=== PATIENT | female | born 1995 | race Caucasian/White ===

== ENCOUNTER 2018-11-30 19:40 | Observation (INO) | payer OTHER ==
[2018-11-30 19:48] VITALS: BMI 27.6
[2018-11-30] MEDS ORDERED: ACETAMINOPHEN 1000 MG/100 ML VIAL (NON FORMULARY) IVPB ONE (20:27)
--- NOTE | 2018-11-30 20:44 | PDOC ---
History of Present Illness - General Chief Complaint: Vaginal Bleeding Stated Complaint: 4 W PREG/VAG BLEEDING Time Seen by Provider: 11/30/18 20:13 History Source: Patient Exam Limitations: No Limitations - History of Present Illness Initial Comments: 11/30/18 20:39 23 yo female no sig pmh presents to ED for abdominal cramping. Pt 4 weeks with first child however pt states US at [facility] today shows spontaneous . Pt told to follow up with OB doctor within the next few days however, decided to come to the ER due to continued crampy abdominal pain. Denies vaginal bleeding, passing clots, weakness, back pain, F/C/N/V Past History - Past Medical History Allergies/Adverse Reactions: Allergies Allergy/AdvReac Type Severity Reaction Status Date / Time No Known Allergies Allergy Verified 11/30/18 19:48 Home Medications: Ambulatory Orders NK [No Known Home Medication] 11/30/18 COPD: No Disorders: Yes (HERPES) - Immunization History Immunization Up to Date: Yes - Suicide/Smoking/Psychosocial Hx Smoking History: Unknown if ever smoked Have you smoked in the past 12 months: No Information on smoking cessation initiated: No Hx Alcohol Use: No Drug/Substance Use Hx: No *Physical Exam - Vital Signs Last Vital Signs Temp Pulse Resp BP Pulse Ox 98.0 F 94 H 16 154/85 100 11/30/18 19:44 11/30/18 19:44 11/30/18 19:44 11/30/18 19:44 11/30/18 19:44 - Physical Exam General Appearance: Yes: Nourished, Appropriately Dressed. No: Apparent Distress HEENT: positive: EOMI Neck: positive: Supple Respiratory/Chest: positive: Lungs Clear, Normal Breath Sounds. negative: Crackles, Rales, Rhonchi, Stridor, Wheezing Cardiovascular: positive: Regular Rhythm, Regular Rate, S1, S2. 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 negative: CMT, discharge, lesions, adnexal tenderness Gastrointestinal/Abdominal: positive: Flat, Soft, Tenderness (periumbilical and RLQ ). negative: Pulsatile Mass, Protuberent, Distended, Guarding, Rebound Musculoskeletal: negative: CVA Tenderness Extremity: positive: Normal Capillary Refill, Normal Inspection, Normal Range of Motion Integumentary: positive: Normal Color, Dry, Warm Neurologic: positive: Fully Oriented, Alert, Normal Mood/Affect, Normal Response ED Treatment Course - LABORATORY CBC & Chemistry Diagram: 11/30/18 20:55 11/30/18 20:55 - RADIOLOGY Radiology Studies Ordered: Category Date Time Status TRANSVAGINAL US PREG [US] Stat Ultrasound 11/30/18 20:22 Ordered Medical Decision Making - Medical Decision Making 12/01/18 01:16 RLQ pain, preg, No MRI. Attempted to transfer to [facility], neither have MRI until morning pt will receive MRI in the AM to r/o appy 12/01/18 02:27 Case presented to hospitalist for admission. Pt accepted, will have US vs MRI in the AM to r/o appendicitis *DC/Admit/Observation/Transfer Diagnosis at time of Disposition: Right lower quadrant pain - Discharge Dispostion Condition at time of disposition: Stable Decision to Admit order: Yes - Referrals - Patient Instructions - Post Discharge Activity
[2018-11-30] MEDS ORDERED: ACETAMINOPHEN INJECTION 100 ML IVPB ONE ×2 (20:46→22:26)
--- NOTE | 2018-11-30 20:58 | PDOC ---
Documentation entered by Jossie Valderrama SCRIBE, acting as scribe for Adina Rocha MD. Adina Rocha MD: This documentation has been prepared by the Lavelle hsu Xhesika, SCRIBE, under my direction and personally reviewed by me in its entirety. I confirm that the documentation accurately reflects all work, treatment, procedures, and medical decision making performed by me. Attending Attestation - Resident Resident Name: Howard Diallo - ED Attending Attestation I have performed the following: I have examined & evaluated the patient, The case was reviewed & discussed with the resident, I agree w/resident's findings & plan, Exceptions are as noted - HPI HPI: 11/30/18 20:53 The patient is a 23 year old female, , 4 weeks , with a significant past medical history of herpes who presents to our ED with 5 days of abdominal cramping. The patient states she went to [facility] today for abdominal pain and the ultrasound showed a spontaneous . The patient states her crampy abdominal pain is progressively gotten worse and its a 8/10. The patient denies taking Tylenol. The patient denies vaginal bleeding, passing clots, weakness, or back pain The patient denies chest pain, shortness of breath or dizziness. The patient denies fever, chills, nausea, diarrhea or constipation. The patient denies dysuria, frequency, or urgency. Allergy: NKDA Surgical History: None reported Social History: None reported - Physicial Exam PE: 11/30/18 20:56 GENERAL: The patient is in no acute distress. ENT: Ears normal, nares patent, oropharynx clear without exudates. Moist mucous membranes. NECK: Normal range of motion, supple LUNGS: Breath sounds equal, clear to auscultation bilaterally. HEART:Regular rate and rhythm, normal S1 and S2 without murmur, rub or gallop. ABDOMEN: Soft, lower abdominal tenderness to palpation EXTREMITIES: Normal range of motion NEUROLOGICAL: Cranial nerves II through XII grossly intact. Normal speech. No focal neurological deficits. SKIN: Warm, Dry, normal turgor, no rashes or lesions noted. - Medical Decision Making 11/30/18 20:56 23 yo approximately 4 weeks presenting with lower abdominal pain , no vaginal bleeding, no vomiting Pt was seen at [facility] for these complaints earlier today Was told that she has a spontaneous She continues to have pain and decided to come in to the ER for evaluation Will repeat labs and US Will give Tylenol for pain Will re assess 11/30/18 22:46 Laboratory Tests 11/30/18 11/30/18 11/30/18 20:55 20:55 21:10 WBC 13.1 H Hgb 13.6 Hct 42.7 Plt Count 266 Sodium 142 Potassium 3.5 Chloride 108 H Carbon Dioxide 27 BUN 11 Creatinine 1.0 Random Glucose 107 H Beta HCG, Quant 2249.0 Urine Blood 1+ H Urine Nitrite Negative Ur Leukocyte Esterase 1+ H Urine WBC (Auto) 9 Urine RBC (Auto) 2 Urine Bacteria (Auto) 514.0 11/30/18 22:51 US pending Pt was not given pain medications Will re assess after pain medications 11/30/18 23:29 EXAM: Transabdominal and transvaginal OB ultrasound HISTORY: IUP versus COMPARISON: None. FINDINGS: Transabdominal and transvaginal sonography performed. There is an early intrauterine gestational sac with a visible yolk sac positioned very low in the lower uterine segment. No pole identified at the time. It is probably too early. Question 1.6 cm right-sided uterine fibroid. Both ovaries are identified. There is intact blood flow to the ovaries. There is a 1.3 cm complex left ovarian cyst, possible corpus luteum cyst. No free fluid. Follow-up is advised. 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
[2018-11-30 21:04] LABS: BASO % 0.7 % (0-2.0); EOS % 1.7 % (0-4.5); HEMATOCRIT 42.7 % (32.4-45.2); HEMOGLOBIN 13.6 GM/dL (10.7-15.3); LYMPH % 23.3 % (8-40); MCH 26.2 pg (25.7-33.7); MCHC 31.9 g/dl (32.0-36.0); MEAN CELL VOLUME 82.1 fl (80-96); MEAN PLT VOLUME 8.4 fl (7.5-11.1); MONO % 7.4 % (3.8-10.2); NEUT % 66.9 % (42.8-82.8); PLATELET COUNT 266 K/MM3 (134-434); WHITE BLOOD COUNT 13.1 K/mm3 (4.0-10.0)
[2018-11-30 21:25] LABS: EPI CELLS 7.2 /HPF (0-5/HPF); URINE APPEARANCE CLEAR; URINE BILIRUBIN NEGATIVE (NEGATIVE); URINE CASTS 6 /lpf (0-8); URINE COLOR YELLOW; URINE GLUCOSE (UA) NEGATIVE (NEGATIVE); URINE KETONE TRACE (NEGATIVE); URINE LEUK ESTERASE 1+ (NEGATIVE); URINE NITRITE NEGATIVE (NEGATIVE); URINE PROTEIN NEGATIVE (NEGATIVE); URINE RBC 2 /hpf (0-4); URINE WBC 9 /hpf (0-5)
[2018-11-30 22:06] LABS: BILIRUBIN,TOTAL 0.2 mg/dL (0.2-1); CALCIUM 8.8 mg/dL (8.5-10.1); POTASSIUM 3.5 mmol/L (3.5-5.1); TOT PROT 7.2 g/dl (6.4-8.2)
[2018-11-30] MEDS ORDERED: SODIUM CHLORIDE 1,000 ML IV STA (22:32)
[2018-12-01 06:27] VITALS: TEMP 98.4
[2018-12-01 08:36] VITALS: BP 121/64; PULSE 84
--- NOTE | 2018-12-01 08:58 | HP ---
CHIEF COMPLAINT: pain abdomen, spontaneous PCP: none HISTORY OF PRESENT ILLNESS: 23 y/o f with no pmh came to hospital yesterday because of pain abdomen. Pain states that she is was having a pain abdomen ( cramping like her menses, intermittent, non radiating ) since november 26 and she checked her urine test which came out positive. later on same day she [facility] and they confirmed the but yesterday when she noticed a brown spot she went to [facility] and was diagnosed with sponateous and was discharged home wi h instruction to come back after 24 hour but pt came to [facility] for persistent pain abdomen. In Er TV ultrasound was done which shows suspicious for an impending . Ob-[facility] Dr macias was consulted. Now pt is pain free and is discharged home with instruction to repeat Bhcg with in 2 days. Pt states she will go to [facility] for the test. Pt denies burning micturation, change in frequency, diarrhoea, constipation, abdominal distension. ER course was notable for: (1)cbc, cmp, TV usg, bhcg Recent Travel: no PAST MEDICAL HISTORY: no PAST SURGICAL HISTORY: none Social History: Smoking:no Alcohol:no Drugs: no Family History: none Allergies No Known Allergies Allergy (Verified 11/30/18 19:48) HOME MEDICATIONS: Home Medications Medication Instructions Recorded NK [No Known Home Medication] 11/30/18 REVIEW OF SYSTEMS CONSTITUTIONAL: Absent: fever, chills, diaphoresis, generalized weakness, malaise, loss of appetite, weight change HEENT: Absent: rhinorrhea, nasal congestion, throat pain, throat swelling, difficulty swallowing, mouth swelling, ear pain, eye pain, visual changes CARDIOVASCULAR: Absent: chest pain, syncope, palpitations, irregular heart rate, lightheadedness , peripheral edema RESPIRATORY: Absent: cough, shortness of breath, dyspnea with exertion, orthopnea, wheezing, stridor, hemoptysis GASTROINTESTINAL: Absent: abdominal pain, abdominal distension, nausea, vomiting, diarrhea, constipation, melena, hematochezia GENITOURINARY: Absent: dysuria, frequency, urgency, hesitancy, hematuria, flank pain, genital pain MUSCULOSKELETAL: Absent: myalgia, arthralgia, joint swelling, back pain, neck pain SKIN: Absent: rash, itching, pallor HEMATOLOGIC/IMMUNOLOGIC: Absent: easy bleeding, easy bruising, lymphadenopathy, frequent infections ENDOCRINE: Absent: unexplained weight gain, unexplained weight loss, heat intolerance, cold intolerance NEUROLOGIC: Absent: headache, focal weakness or paresthesias, dizziness, unsteady gait, seizure, mental status changes, bladder or bowel incontinence PSYCHIATRIC: Absent: anxiety, depression, suicidal or homicidal ideation, hallucinations. PHYSICAL EXAMINATION Vital Signs - 24 hr 11/30/18 11/30/18 12/01/18 19:44 22:20 06:26 Temperature 98.0 F 98.7 F 98.4 F Pulse Rate 94 H Pulse Rate [ 77 86 Right Radial] Respiratory 16 16 Rate Blood Pressure 154/85 Blood Pressure 128/72 117/68 [Right Arm] O2 Sat by Pulse 100 100 99 Oximetry (%) 12/01/18 08:05 Temperature Pulse Rate Pulse Rate [ 84 Right Radial] Respiratory 17 Rate Blood Pressure Blood Pressure 121/64 [Right Arm] O2 Sat by Pulse 98 Oximetry (%) GENERAL: Awake, alert, and fully oriented, in no acute distress. HEAD: Normal with no signs of trauma. EYES: Pupils equal, round and reactive to light, extraocular movements intact, EARS, NOSE, THROAT: Moist mucous membranes. NECK: Normal range of motion, supple without lymphadenopathy, JVD, or masses. LUNGS: Breath sounds equal, clear to auscultation bilaterally. No wheezes, and no crackles. No accessory muscle use. HEART: Regular rate and rhythm, normal S1 and S2 without murmur, rub or gallop. ABDOMEN: Soft, mild tender, not distended, normoactive bowel sounds, no guarding , no rebound, no masses. MUSCULOSKELETAL: Normal range of motion at all joints. No bony deformities or tenderness. UPPER EXTREMITIES: 2+ pulses, warm, well-perfused. LOWER EXTREMITIES: 2+ pulses, warm, well-perfused. No calf tenderness. No peripheral edema. NEUROLOGICAL: Cranial nerves II-XII intact. Normal speech. Normal gait. PSYCHIATRIC: Cooperative. Good eye contact. Appropriate mood and affect. SKIN: Warm, dry, Laboratory Results - last 24 hr 11/30/18 11/30/18 11/30/18 20:55 20:55 20:55 WBC 13.1 H RBC 5.20 Hgb 13.6 Hct 42.7 MCV 82.1 MCH 26.2 MCHC 31.9 L RDW 14.0 Plt Count 266 MPV 8.4 Absolute Neuts (auto) 8.8 H Neutrophils % 66.9 Lymphocytes % 23.3 Monocytes % 7.4 Eosinophils % 1.7 Basophils % 0.7 Nucleated RBC % 0 Sodium 142 Potassium 3.5 Chloride 108 H Carbon Dioxide 27 Anion Gap 7 L BUN 11 Creatinine 1.0 Est GFR (CKD-EPI)AfAm 90.68 Est GFR (CKD-EPI)NonAf 78.24 Random Glucose 107 H Calcium 8.8 Total Bilirubin 0.2 AST 16 ALT 46 Alkaline Phosphatase 94 Total Protein 7.2 Albumin 4.0 Beta HCG, Quant 2249.0 Urine Color Urine Appearance Urine pH Ur Specific [place] Urine Protein Urine Glucose (UA) Urine Ketones Urine Blood Urine Nitrite Urine Bilirubin Urine Urobilinogen Ur Leukocyte Esterase Urine WBC (Auto) Urine RBC (Auto) Urine Casts (Auto) U Epithel Cells (Auto) Urine Bacteria (Auto) Blood Type O POSITIVE Antibody Screen Negative 11/30/18 21:10 WBC RBC Hgb Hct MCV MCH MCHC RDW Plt Count MPV Absolute Neuts (auto) Neutrophils % Lymphocytes % Monocytes % Eosinophils % Basophils % Nucleated RBC % Sodium Potassium Chloride Carbon Dioxide Anion Gap BUN Creatinine Est GFR (CKD-EPI)AfAm Est GFR (CKD-EPI)NonAf Random Glucose Calcium Total Bilirubin AST ALT Alkaline Phosphatase Total Protein Albumin Beta HCG, Quant Urine Color Yellow Urine Appearance Clear Urine pH 5.0 Ur Specific [place] 1.027 Urine Protein Negative Urine Glucose (UA) Negative Urine Ketones Trace H Urine Blood 1+ H Urine Nitrite Negative Urine Bilirubin Negative Urine Urobilinogen 1.0 Ur Leukocyte Esterase 1+ H Urine WBC (Auto) 9 Urine RBC (Auto) 2 Urine Casts (Auto) 6 U Epithel Cells (Auto) 7.2 Urine Bacteria (Auto) 514.0 Blood Type Antibody Screen ASSESSMENT/PLAN: Impending - dr macias consulted and she saw the pt with primary medical team. Ultrasound findings discussed in detail with pt. - tylenol for pain - drink plenty of liquid - repeat bhcg with in 2 days which can be done out pt. - Visit type - Emergency Visit Emergency Visit: Yes ED Registration Date: 12/01/18 Care time: The patient presented to the Emergency Department on the above date and was hospitalized for further evaluation of their emergent condition. - New Patient This patient is new to me today: Yes Date on this admission: 12/01/18 - Critical Care Critical Care patient: No
--- NOTE | 2018-12-01 08:58 | DS ---
Physical Exam: SUBJECTIVE: Patient seen and examined OBJECTIVE: Vital Signs Period Temp Pulse Resp BP Sys/[place]court Pulse Ox Last 24 Hr 98.0 F-98.7 F 77-94 16-17 117-154/64-85 98-100 PHYSICAL EXAM GENERAL: The patient is awake, alert, and fully oriented, in no acute distress. HEAD: Normal with no signs of trauma. EYES: PERRL, extraocular movements intact, sclera anicteric, conjunctiva clear. ENT: Ears normal, nares patent, oropharynx clear without exudates, moist mucous membranes. NECK: Trachea midline, full range of motion, supple. LUNGS: Breath sounds equal, clear to auscultation bilaterally, no wheezes, no crackles, no accessory muscle use. HEART: Regular rate and rhythm, S1, S2 without murmur, rub or gallop. ABDOMEN: Soft, nontender, nondistended, normoactive bowel sounds, no guarding, no rebound, no hepatosplenomegaly, no masses. EXTREMITIES: 2+ pulses, warm, well-perfused, no edema. NEUROLOGICAL: Cranial nerves II through XII grossly intact. Normal speech, gait not observed. PSYCH: Normal mood, normal affect. SKIN: Warm, dry, normal turgor, no rashes or lesions noted. LABS Laboratory Results - last 24 hr 11/30/18 11/30/18 11/30/18 20:55 20:55 20:55 WBC 13.1 H RBC 5.20 Hgb 13.6 Hct 42.7 MCV 82.1 MCH 26.2 MCHC 31.9 L RDW 14.0 Plt Count 266 MPV 8.4 Absolute Neuts (auto) 8.8 H Neutrophils % 66.9 Lymphocytes % 23.3 Monocytes % 7.4 Eosinophils % 1.7 Basophils % 0.7 Nucleated RBC % 0 Sodium 142 Potassium 3.5 Chloride 108 H Carbon Dioxide 27 Anion Gap 7 L BUN 11 Creatinine 1.0 Est GFR (CKD-EPI)AfAm 90.68 Est GFR (CKD-EPI)NonAf 78.24 Random Glucose 107 H Calcium 8.8 Total Bilirubin 0.2 AST 16 ALT 46 Alkaline Phosphatase 94 Total Protein 7.2 Albumin 4.0 Beta HCG, Quant 2249.0 Urine Color Urine Appearance Urine pH Ur Specific [place] Urine Protein Urine Glucose (UA) Urine Ketones Urine Blood Urine Nitrite Urine Bilirubin Urine Urobilinogen Ur Leukocyte Esterase Urine WBC (Auto) Urine RBC (Auto) Urine Casts (Auto) U Epithel Cells (Auto) Urine Bacteria (Auto) Blood Type O POSITIVE Antibody Screen Negative 11/30/18 21:10 WBC RBC Hgb Hct MCV MCH MCHC RDW Plt Count MPV Absolute Neuts (auto) Neutrophils % Lymphocytes % Monocytes % Eosinophils % Basophils % Nucleated RBC % Sodium Potassium Chloride Carbon Dioxide Anion Gap BUN Creatinine Est GFR (CKD-EPI)AfAm Est GFR (CKD-EPI)NonAf Random Glucose Calcium Total Bilirubin AST ALT Alkaline Phosphatase Total Protein Albumin Beta HCG, Quant Urine Color Yellow Urine Appearance Clear Urine pH 5.0 Ur Specific [place] 1.027 Urine Protein Negative Urine Glucose (UA) Negative Urine Ketones Trace H Urine Blood 1+ H Urine Nitrite Negative Urine Bilirubin Negative Urine Urobilinogen 1.0 Ur Leukocyte Esterase 1+ H Urine WBC (Auto) 9 Urine RBC (Auto) 2 Urine Casts (Auto) 6 U Epithel Cells (Auto) 7.2 Urine Bacteria (Auto) 514.0 Blood Type Antibody Screen HOSPITAL COURSE: Date of Admission:12/01/18 Date of Discharge: 12/01/18 Discharge Summary Reason For Visit: RIGHT LOWER QUADRANT ABDOMINAL PAIN Condition: Stable - Instructions Disposition: HOME - Home Medications Comprehensive Discharge Medication List: Ambulatory Orders NK [No Known Home Medication] 11/30/18
--- NOTE | 2018-12-01 09:00 | CON.OBG ---
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 She admits to have gone to [facility] where she was found to be . In ED a sonogram was done and showed evidence of a low lying gestational sac. [facility] : 2544 mIU - History Source History Provided By: Patient Limitations to Obtaining History: Language Barrier - Past Medical History ...: Yes (4wks) ...: 1 ...Para: 0 - Past Surgical History Past Surgical History: Yes: None - Alcohol/Substance Use Hx Alcohol Use: No - Smoking History Smoking history: Unknown if ever smoked Have you smoked in the past 12 months: No - Social History Usual Living Arrangement: Alone History of Recent Travel: No Home Medications - Allergies Allergies/Adverse Reactions: Allergies Allergy/AdvReac Type Severity Reaction Status Date / Time No Known Allergies Allergy Verified 11/30/18 19:48 - Home Medications Home Medications: Ambulatory Orders NK [No Known Home Medication] 11/30/18 Family Disease History - Family Disease History Family History: Unremarkable Review of Systems - Review of Systems Constitutional: reports: No Symptoms Eyes: reports: No Symptoms HENT: reports: No Symptoms Neck: reports: No Symptoms Cardiovascular: reports: No Symptoms Respiratory: reports: No Symptoms Gastrointestinal: reports: No Symptoms Genitourinary: reports: No Symptoms Breasts: reports: No Symptoms Reported Musculoskeletal: reports: No Symptoms Integumentary: reports: No Symptoms Neurological: reports: No Symptoms Endocrine: reports: No Symptoms Hematology/Lymphatic: reports: No Symptoms Psychiatric: reports: No Symptoms Pain Intensity: 3 Physical Exam-WOOD BARREL RECONDITIONER Vital Signs: Vital Signs Temperature 98.4 F 12/01/18 06:26 Pulse Rate 84 12/01/18 08:05 Respiratory Rate 17 12/01/18 08:05 Blood Pressure 121/64 12/01/18 08:05 O2 Sat by Pulse Oximetry (%) 98 12/01/18 08:05 Constitutional: Yes: Well Nourished Eyes: Yes: Conjunctiva Clear HENT: Yes: Atraumatic Neck: Yes: Supple Cardiovascular: Yes: Regular Rate and Rhythm Respiratory: Yes: Regular Gastrointestinal: Yes: Normal Bowel Sounds, Other (Mild suprapubic tenderness) ...Rectal Exam: Yes: WNL Renal/: Yes: WNL Pelvis: Yes: WNL External Genitalia: Yes: Normal Vaginal Exam: No: Bleeding Cervix: No: Bleeding Neurological: Yes: Alert, Oriented Psychiatric: Yes: Alert, Oriented Labs: CBC, BMP 11/30/18 20:55 11/30/18 20:55 Assessment/Plan Chemical R/O spontaneous Abdominal pain F/U serial BHCG as outpatient ( [address] [place] [address] ) Tylenol for pain
--- NOTE | 2018-12-01 09:05 | DS ---
Physical Exam: SUBJECTIVE: pain abdomen from an impending OBJECTIVE: Vital Signs Period Temp Pulse Resp BP Sys/Bettencourt Pulse Ox Last 24 Hr 98.0 F-98.7 F 77-94 16-17 117-154/64-85 98-100 PHYSICAL EXAM GENERAL: The patient is awake, alert, and fully oriented, in no acute distress. HEAD: Normal with no signs of trauma. EYES: PERRL, extraocular movements intact, sclera anicteric, conjunctiva clear. ENT: Ears normal, nares patent, oropharynx clear without exudates, moist mucous membranes. NECK: Trachea midline, full range of motion, supple. LUNGS: Breath sounds equal, clear to auscultation bilaterally, no wheezes, no crackles, no accessory muscle use. HEART: Regular rate and rhythm, S1, S2 without murmur, rub or gallop. ABDOMEN: Soft, mild supra pubic tender, nondistended, normoactive bowel sounds, no guarding, no rebound,, no masses. EXTREMITIES: 2+ pulses, warm, well-perfused, no edema. NEUROLOGICAL: Cranial nerves II through XII grossly intact. Normal speech, gait not observed. PSYCH: Normal mood, normal affect. SKIN: Warm, dry, LABS Laboratory Results - last 24 hr 11/30/18 11/30/18 11/30/18 20:55 20:55 20:55 WBC 13.1 H RBC 5.20 Hgb 13.6 Hct 42.7 MCV 82.1 MCH 26.2 MCHC 31.9 L RDW 14.0 Plt Count 266 MPV 8.4 Absolute Neuts (auto) 8.8 H Neutrophils % 66.9 Lymphocytes % 23.3 Monocytes % 7.4 Eosinophils % 1.7 Basophils % 0.7 Nucleated RBC % 0 Sodium 142 Potassium 3.5 Chloride 108 H Carbon Dioxide 27 Anion Gap 7 L BUN 11 Creatinine 1.0 Est GFR (CKD-EPI)AfAm 90.68 Est GFR (CKD-EPI)NonAf 78.24 Random Glucose 107 H Calcium 8.8 Total Bilirubin 0.2 AST 16 ALT 46 Alkaline Phosphatase 94 Total Protein 7.2 Albumin 4.0 Beta HCG, Quant 2249.0 Urine Color Urine Appearance Urine pH Ur Specific [place] Urine Protein Urine Glucose (UA) Urine Ketones Urine Blood Urine Nitrite Urine Bilirubin Urine Urobilinogen Ur Leukocyte Esterase Urine WBC (Auto) Urine RBC (Auto) Urine Casts (Auto) U Epithel Cells (Auto) Urine Bacteria (Auto) Blood Type O POSITIVE Antibody Screen Negative 11/30/18 21:10 WBC RBC Hgb Hct MCV MCH MCHC RDW Plt Count MPV Absolute Neuts (auto) Neutrophils % Lymphocytes % Monocytes % Eosinophils % Basophils % Nucleated RBC % Sodium Potassium Chloride Carbon Dioxide Anion Gap BUN Creatinine Est GFR (CKD-EPI)AfAm Est GFR (CKD-EPI)NonAf Random Glucose Calcium Total Bilirubin AST ALT Alkaline Phosphatase Total Protein Albumin Beta HCG, Quant Urine Color Yellow Urine Appearance Clear Urine pH 5.0 Ur Specific [place] 1.027 Urine Protein Negative Urine Glucose (UA) Negative Urine Ketones Trace H Urine Blood 1+ H Urine Nitrite Negative Urine Bilirubin Negative Urine Urobilinogen 1.0 Ur Leukocyte Esterase 1+ H Urine WBC (Auto) 9 Urine RBC (Auto) 2 Urine Casts (Auto) 6 U Epithel Cells (Auto) 7.2 Urine Bacteria (Auto) 514.0 Blood Type Antibody Screen HOSPITAL COURSE: 23 y/o f with no pmh came to hospital yesterday because of pain abdomen. Pain states that she is was having a apin abdomen since november 26 and she checked her uine test which came out positive. later on same day she went to [facility] and they confirmed the but yesterday when she noticed a brown spot she went to [facility] and was diagnosed with sponateous and was discharged home wi h instruction to come back after 24 hour but pt [facility] for persistent pain abdomen. In Er TV ultrasound was done which shows suspicious for an impending . 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 Now pt is pain free and is discharged home with instruction to repeat Bhcg with in 2 days. Pt states she will go to [facility] the test. Date of Admission:12/01/18 Date of Discharge: 12/01/18 Minutes to complete discharge: 45 Discharge Summary Reason For Visit: RIGHT LOWER QUADRANT ABDOMINAL PAIN Condition: Stable - Instructions Diet, Activity, Other Instructions: Follow up with your ob - wheel and axle inspector Get serum Bhcg level with in 2 days. Take tylenol for pain. Referrals: Karon Sparks MD [Staff Physician] - Disposition: HOME - Home Medications Comprehensive Discharge Medication List: Ambulatory Orders NK [No Known Home Medication] 11/30/18 This patient is new to me today: Yes Date on this admission: 12/01/18 Emergency Visit: Yes ED Registration Date: 12/01/18 Care time: The patient presented to the Emergency Department on the above date and was hospitalized for further evaluation of their emergent condition. Critical Care patient: No - Discharge Referral Referred to [facility] Med P.C.: No
--- NOTE | 2018-12-01 09:18 | PN ---
Teaching Attending Note Name of Resident: Alcides Peña ATTENDING PHYSICIAN STATEMENT I saw and evaluated the patient. I reviewed the resident's note and discussed the case with the resident. I agree with the resident's findings and plan as documented. SUBJECTIVE: Patient is a 23yo female vietnamese speaking, translation was done by , as per patient, she was at [facility] yesterday and was told that she has a missed , and if she continues to have further bleeding, needs return to the hospital. As per patient she continued to have more pain, came to [facility]. This morning, patient has no further pain and no further bleeding as per patient and per public health director exam. OBJECTIVE: Vital Signs Temperature 98.4 F 12/01/18 06:26 Pulse Rate 84 12/01/18 08:05 Respiratory Rate 17 12/01/18 08:05 Blood Pressure 121/64 12/01/18 08:05 O2 Sat by Pulse Oximetry (%) 98 12/01/18 08:05 Initial Vital Signs Temp Pulse Resp BP Pulse Ox 98.0 F 94 H 16 154/85 100 11/30/18 19:44 11/30/18 19:44 11/30/18 19:44 11/30/18 19:44 11/30/18 19:44 GENERAL: The patient is awake, alert, and fully oriented, in no acute distress. HEAD: Normal with no signs of trauma. EYES: PERRL, extraocular movements intact, sclera anicteric, conjunctiva clear. ENT: Ears normal, oropharynx clear without exudates, moist mucous membranes. NECK: Trachea midline, full range of motion, supple. LUNGS: Breath sounds equal, clear to auscultation bilaterally, no wheezes, no crackles, no accessory muscle use. HEART: Regular rate and rhythm, S1, S2 without murmur, rub or gallop. ABDOMEN: Soft, ND, normoactive bowel sounds, no guarding, no rebound, no hepatosplenomegaly, no masses. EXTREMITIES: 2+ pulses, warm, well-perfused, no edema. NEUROLOGICAL: Cranial nerves II through XII grossly intact. Normal speech, gait not observed. PSYCH: Normal mood, normal affect. SKIN: Warm, dry, normal turgor, no rashes or lesions noted Pelvic exam: per Dr. Sparks. CBCD WBC 13.1 K/mm3 (4.0-10.0) H 11/30/18 20:55 RBC 5.20 M/mm3 (3.60-5.2) 11/30/18 20:55 Hgb 13.6 GM/dL (10.7-15.3) 11/30/18 20:55 Hct 42.7 % (32.4-45.2) 11/30/18 20:55 MCV 82.1 fl (80-96) 11/30/18 20:55 MCHC 31.9 g/dl (32.0-36.0) L 11/30/18 20:55 RDW 14.0 % (11.6-15.6) 11/30/18 20:55 Plt Count 266 K/MM3 (134-434) 11/30/18 20:55 MPV 8.4 fl (7.5-11.1) 11/30/18 20:55 CMP Sodium 142 mmol/L (136-145) 11/30/18 20:55 Potassium 3.5 mmol/L (3.5-5.1) 11/30/18 20:55 Chloride 108 mmol/L (98-107) H 11/30/18 20:55 Carbon Dioxide 27 mmol/L (21-32) 11/30/18 20:55 Anion Gap 7 MMOL/L (8-16) L 11/30/18 20:55 BUN 11 mg/dL (7-18) 11/30/18 20:55 Creatinine 1.0 mg/dL (0.55-1.3) 11/30/18 20:55 Random Glucose 107 mg/dL (74-106) H 11/30/18 20:55 Calcium 8.8 mg/dL (8.5-10.1) 11/30/18 20:55 Total Bilirubin 0.2 mg/dL (0.2-1) 11/30/18 20:55 AST 16 U/L (15-37) 11/30/18 20:55 ALT 46 U/L (13-61) 11/30/18 20:55 Alkaline Phosphatase 94 U/L (45-117) 11/30/18 20:55 Total Protein 7.2 g/dl (6.4-8.2) 11/30/18 20:55 Albumin 4.0 g/dl (3.4-5.0) 11/30/18 20:55 Home Medications Medication Instructions Recorded NK [No Known Home Medication] 11/30/18 Urine Test Results Urine Color Yellow 11/30/18 21:10 Urine Appearance Clear 11/30/18 21:10 Urine pH 5.0 (5.0-8.0) 11/30/18 21:10 Ur Specific [place] 1.027 (1.010-1.035) 11/30/18 21:10 Urine Protein Negative (NEGATIVE) 11/30/18 21:10 Urine Glucose (UA) Negative (NEGATIVE) 11/30/18 21:10 Urine Ketones Trace (NEGATIVE) H 11/30/18 21:10 Urine Blood 1+ (NEGATIVE) H 11/30/18 21:10 Urine Nitrite Negative (NEGATIVE) 11/30/18 21:10 Urine Bilirubin Negative (NEGATIVE) 11/30/18 21:10 Ur Leukocyte Esterase 1+ (NEGATIVE) H 11/30/18 21:10 TYPE/EXAM: RESULT: [id number] US/TRANSVAGINAL US PREG HISTORY PROVIDED: evaluation. Real time examination of the pelvis utilizing both the transabdominal and transvaginal probes demonstrates the following: The uterus is normal in size measuring 7.9 x 5.4 x 4.5 cm. No uterine masses are seen. There is an intrauterine fluid collection consistent with a gestational sac. The sac is located within the lower uterine segment which is suspicious for an impending . Mean sac diameter measurements correspond to gestational age of less than 5 weeks. There is a yolk sac within the gestational sac with no evidence of a pole. Correlation with serial beta subunit hCG levels and follow-up ultrasonography is now recommended. The ovaries are normal in size and texture with arterial flow documents the both ovaries. There is an echogenic mass within the left ovary consistent with a corpus luteum cyst. There is no evidence of adnexal masses or free pelvic fluid collections. IMPRESSION: Early gestational sac within the lower uterine segment suggesting impending . Clinical and laboratory correlation and follow-up ultrasonography recommended. Please see above discussion. ASSESSMENT AND PLAN: Impending , with early gestational sac within the lower uterine segment per US report. R/O spontaneous patient was seen by OBGYn in the ED, patient is being discharged home with follow up with her OBGYN in [facility] in 2 days to have serial HCG done to determine further. F/U serial BHCG as outpatient ( [address] [place] [address] ) Tylenol for pain. patient is being discharged home.
--- NOTE | 2018-12-01 09:35 | EKG ---
Test Reason : Blood Pressure : / mmHG Vent. Rate : 074 BPM Atrial Rate : 074 BPM P-R Int : 152 ms QRS Dur : 080 ms QT Int : 378 ms P-R-T Axes : 027 029 006 degrees QTc Int : 419 ms NORMAL SINUS RHYTHM CANNOT RULE OUT ANTERIOR INFARCT , AGE UNDETERMINED ABNORMAL ECG NO PREVIOUS ECGS AVAILABLE Confirmed by RAMESH PHELAN, ALESHA ([id number]) on 12/01/2018 9:35:10 AM Referred By: Princess PÉREZ Confirmed By:ALESHA CHANDLER MD
== END 2018-12-01 08:43 | disposition home or self-care (01) ==
LOC: JER 19:40 → JERBED 12-01 02:25
PROVIDERS: ADMIT Internal Medicine; ATTEND Internal Medicine
PROC: 3E033NZ Introduction of Analgesics, Hypnotics, Sedatives into Peripheral Vein, Percutaneous Approach (ICD-10-PCS; principal; 2018-12-01)
PROC: 3E0337Z Introduction of Electrolytic and Water Balance Substance into Peripheral Vein, Percutaneous Approach (ICD-10-PCS; 2018-12-01)
PROC: BY49ZZZ Ultrasonography of First Trimester, Single Fetus (ICD-10-PCS; 2018-12-01)
DX: O26.891 Other specified pregnancy related conditions, first trimester (principal); O02.81 Inappropriate change in quantitative human chorionic gonadotropin (hCG) in early pregnancy; Z3A.01 Less than 8 weeks gestation of pregnancy; R10.31 Right lower quadrant pain
CPT/HCPCS: 36415; 76817-TC; 76830; 76856-TC; 80053; 81003; 84702; 85025; 86850; 86900; 86901; 87086; 93005; 93010; 96361; 96374; 99284-25; G0378; J0131; J7030

== ENCOUNTER 2022-10-13 13:45 | Emergency (ER) | payer OTHER ==
[2022-10-13 14:06] VITALS: BP 134/79; PULSE 79; RESP 16; TEMP 98.2; BMI 35.0
[2022-10-13 14:58] LABS: BASO % 0.7 % (0-2.0); EOS % 2.1 % (0-4.5); HEMATOCRIT 39.3 % (32.4-45.2); HEMOGLOBIN 13.4 GM/dL (10.7-15.3); LYMPH % 31.8 % (8-40); MCH 27.1 pg (25.7-33.7); MCHC 34.2 g/dl (32.0-36.0); MEAN CELL VOLUME 79.1 fl (80-96); MEAN PLT VOLUME 8.8 fl (7.5-11.1); MONO % 4.7 % (3.8-10.2); NEUT % 60.7 % (42.8-82.8); PLATELET COUNT 271 10^3/uL (134-434); RBC 4.97 M/mm3 (3.60-5.2); RDW 13.6 % (11.6-15.6)
[2022-10-13 15:05] LABS: INR 1.15 (0.83-1.09); PROTHROMBIN TIME (PATIENT) 13.3 SEC (9.7-13.0)
[2022-10-13 15:08] LABS: ACTIVATED PTT 41.2 SECONDS (25.2-36.5)
[2022-10-13 15:19] LABS: CALCIUM 9.2 mg/dL (8.5-10.1); MAGNESIUM 2.2 mg/dL (1.8-2.4)
[2022-10-13 15:23] LABS: BILIRUBIN,TOTAL 0.5 mg/dL (0.2-1); CREATININE 0.7 mg/dL (0.55-1.3); TOT PROT 7.5 g/dl (6.4-8.2)
[2022-10-13] MEDS ORDERED: NAPROXEN 500 MG TABLET PO ONE (16:09)
[2022-10-13] MEDS ORDERED: NAPROXEN 500 MG TABLET ONE (16:14)
== END 2022-10-13 16:18 | disposition home or self-care (01) ==
LOC: JER 13:45
DX: M94.0 Chondrocostal junction syndrome [Tietze] (principal)
CPT/HCPCS: 36415; 71046-TC-FY; 80053; 83735; 84484; 84703; 85025; 85610; 85730; 93005; 93010; 99285-25